=== PATIENT | female | born 1945 | race Caucasian/White ===

== ENCOUNTER 2019-06-12 11:21 | Outpatient (CLI) | payer OTHER ==
[~2019-06-12 11:21] MED LIST: CATAFLAM50 MG PO; KETO10TA2 PO
== END 2019-06-12 13:55 | disposition home or self-care (01) ==
LOC: RAD 11:21
DX: M51.87 Other intervertebral disc disorders, lumbosacral region (principal)

== ENCOUNTER 2019-08-11 12:43 | Outpatient (CLI) | payer OTHER | END 2019-08-11 13:11 | disposition home or self-care (01) | LOC: NUCLEAR 12:43 | DX: M81.0 Age-related osteoporosis without current pathological fracture (principal); Z13.820 Encounter for screening for osteoporosis ==

== ENCOUNTER 2019-08-29 09:50 | Outpatient (CLI) | payer OTHER | END 2019-08-29 10:30 | disposition home or self-care (01) | LOC: RAD 09:50 | DX: M54.5 Low back pain (principal); M54.16 Radiculopathy, lumbar region ==

== ENCOUNTER 2020-06-14 11:22 | Outpatient (CLI) | payer OTHER | END 2020-06-14 11:29 | disposition home or self-care (01) | LOC: RAD 11:22 | PROVIDERS: ATTEND Physical Medicine & Rehabilitation | DX: M19.071 Primary osteoarthritis, right ankle and foot (principal); M17.11 Unilateral primary osteoarthritis, right knee ==

== ENCOUNTER 2020-07-05 12:01 | Outpatient (CLI) | payer OTHER | END 2020-07-05 12:05 | disposition home or self-care (01) | LOC: LAB 12:01 | PROVIDERS: ATTEND Physical Medicine & Rehabilitation | DX: Z11.59 Encounter for screening for other viral diseases (principal) ==

== ENCOUNTER 2020-07-06 10:32 | Outpatient (CLI) | payer OTHER | END 2020-07-06 10:43 | disposition home or self-care (01) | LOC: SONOGRAMA 10:32 → MAMO-SONO 10:45 | PROVIDERS: ATTEND Physical Medicine & Rehabilitation | DX: M76.821 Posterior tibial tendinitis, right leg (principal) ==

== ENCOUNTER 2021-08-08 10:23 | Outpatient (CLI) | payer OTHER | END 2021-08-08 10:30 | disposition home or self-care (01) | LOC: RAD 10:23 | PROVIDERS: ATTEND Orthopaedic Surgery | DX: M17.12 Unilateral primary osteoarthritis, left knee (principal) ==

== ENCOUNTER 2021-08-11 13:42 | Outpatient (CLI) | payer OTHER | END 2021-08-11 13:50 | disposition home or self-care (01) | LOC: NUCLEAR 13:42 | PROVIDERS: ATTEND Orthopaedic Surgery | DX: M81.0 Age-related osteoporosis without current pathological fracture (principal) ==

== ENCOUNTER → 2021-08-23 07:27 | Outpatient (CLI) | payer OTHER | END | disposition home or self-care (01) | LOC: LAB 07:27 | PROVIDERS: ATTEND Orthopaedic Surgery | DX: M85.88 Other specified disorders of bone density and structure, other site (principal); E88.89 Other specified metabolic disorders; M81.8 Other osteoporosis without current pathological fracture; E83.42 Hypomagnesemia; E56.1 Deficiency of vitamin K ==

== ENCOUNTER 2021-10-26 11:18 | Outpatient (CLI) | payer OTHER | END 2021-10-26 11:22 | disposition home or self-care (01) | LOC: RAD 11:18 | PROVIDERS: ATTEND Orthopaedic Surgery | DX: I10 Essential (primary) hypertension (principal); M79.652 Pain in left thigh; M79.605 Pain in left leg; Z76.89 Persons encountering health services in other specified circumstances ==

== ENCOUNTER 2021-11-03 08:29 | Outpatient (CLI) | payer OTHER | END 2021-11-03 15:52 | disposition home or self-care (01) | LOC: SONOGRAMA 08:29 | PROVIDERS: ATTEND Pathology Anatomic Pathology & Clinical Pathology | DX: R10.84 Generalized abdominal pain (principal) ==

== ENCOUNTER 2021-11-28 08:31 | Outpatient (CLI) | payer OTHER | END 2021-11-28 08:44 | disposition home or self-care (01) | LOC: LAB 08:31 | PROVIDERS: ATTEND Orthopaedic Surgery | DX: I49.8 Other specified cardiac arrhythmias (principal); I10 Essential (primary) hypertension; D64.89 Other specified anemias; E88.89 Other specified metabolic disorders; E83.42 Hypomagnesemia; N39.0 Urinary tract infection, site not specified; D68.8 Other specified coagulation defects; B95.62 Methicillin resistant Staphylococcus aureus infection as the cause of diseases classified elsewhere; E11.9 Type 2 diabetes mellitus without complications; E03.8 Other specified hypothyroidism; U07.1 COVID-19 ==

== ENCOUNTER 2021-11-28 12:54 | Inpatient (IN) | payer OTHER ==
[~2021-11-28] VITALS: Ht 154.9 cm; Wt 62.1 kg
[2021-12-08] MEDS ORDERED: CYMBALTA30 MG PO (08:35)
[2021-12-08] MEDS ORDERED: CRESTOR20 MG PO (08:35)
[2021-12-12] MEDS ORDERED: FAMOTIDINE20 MG (08:59)
[2021-12-12] MEDS ORDERED: CELECOXIB200 MG (08:59)
[2021-12-12] MEDS ORDERED: XARELTO10 M1 (08:59)
[2021-12-12] MEDS ORDERED: GABAPENTIN100 M2 (08:59)
[2021-12-12] MEDS ORDERED: OFLOXACIN5 ML (09:00)
[2021-12-12] MEDS ORDERED: ZOLPIDEM TARTRAT5 MG (09:00)
[2021-12-12] MEDS ORDERED: ALPRAZOLAM0.5 MG (09:00)
[2021-12-12] MEDS ORDERED: METRONIDAZOLE70 GM (09:00)
[2021-12-12] MEDS ORDERED: PREDNISOLONE ACE5 ML (09:00)
== END 2021-12-14 20:01 | disposition home or self-care (01) | DRG 470 ==
LOC: SURG 12-12 06:41 → O/R 12-12 06:41 → SURH 12-12 07:15 → LDR 12-12 07:15 → SURH 12-12 08:15 → SURG 12-12 16:54
PROVIDERS: ADMIT Orthopaedic Surgery; ATTEND Orthopaedic Surgery
PROC: 0SRD0J9 Replacement of Left Knee Joint with Synthetic Substitute, Cemented, Open Approach (ICD-10-PCS; principal; 2021-12-12 08:15)
DX: M17.12 Unilateral primary osteoarthritis, left knee (principal); M85.662 Other cyst of bone, left lower leg

== ENCOUNTER → 2022-12-07 10:46 | Outpatient (CLI) | payer OTHER ==
[~2022-12-07 10:46] MED LIST changes: +ALPRAZOLAM0.5 MG; +CELECOXIB200 MG; +CRESTOR20 MG PO; +CYMBALTA30 MG PO; +FAMOTIDINE20 MG; +GABAPENTIN100 M2; +METRONIDAZOLE70 GM; +OFLOXACIN5 ML; +PREDNISOLONE ACE5 ML; +XARELTO10 M1; +ZOLPIDEM TARTRAT5 MG
== END | disposition home or self-care (01) ==
LOC: LAB 10:46
PROVIDERS: ATTEND Orthopaedic Surgery
DX: D64.9 Anemia, unspecified (principal); E88.9 Metabolic disorder, unspecified; D68.8 Other specified coagulation defects; N39.0 Urinary tract infection, site not specified; A49.02 Methicillin resistant Staphylococcus aureus infection, unspecified site; E11.9 Type 2 diabetes mellitus without complications; I49.9 Cardiac arrhythmia, unspecified; I10 Essential (primary) hypertension; Z76.89 Persons encountering health services in other specified circumstances

== ENCOUNTER 2023-05-25 11:29 | Outpatient (CLI) | payer OTHER | END 2023-05-25 11:38 | disposition home or self-care (01) | LOC: RAD 11:29 | PROVIDERS: ATTEND Physical Medicine & Rehabilitation | DX: M25.562 Pain in left knee (principal); Z96.652 Presence of left artificial knee joint ==

== ENCOUNTER 2023-07-19 12:59 | Outpatient (CLI) | payer OTHER | END 2023-07-19 13:04 | disposition home or self-care (01) | LOC: NUCLEAR 12:59 | PROVIDERS: ATTEND Specialist | DX: M81.0 Age-related osteoporosis without current pathological fracture (principal) ==

== ENCOUNTER 2023-11-01 10:12 | Outpatient (CLI) | payer OTHER | END 2023-11-01 10:26 | disposition home or self-care (01) | LOC: MRI 10:12 | PROVIDERS: ATTEND Physical Medicine & Rehabilitation | DX: M81.0 Age-related osteoporosis without current pathological fracture (principal); M50.33 Other cervical disc degeneration, cervicothoracic region; M54.59 Other low back pain; M54.16 Radiculopathy, lumbar region | CPT/HCPCS: 72148 ==

== ENCOUNTER → 2024-01-17 11:08 | Outpatient (CLI) | payer OTHER ==
[2024-01-17 12:18] LABS: CREATININE SERUM 0.61 mg/dL (0.55-1.02)
== END | disposition home or self-care (01) ==
LOC: LAB 11:08
PROVIDERS: ATTEND Radiology Diagnostic Radiology
DX: R10.30 Lower abdominal pain, unspecified (principal)

== ENCOUNTER 2024-01-21 07:44 | Outpatient (CLI) | payer OTHER | END 2024-01-21 07:59 | disposition home or self-care (01) | LOC: MAMO-SONO 07:44 | PROVIDERS: ATTEND Obstetrics & Gynecology | DX: N63.10 Unspecified lump in the right breast, unspecified quadrant (principal); N63.20 Unspecified lump in the left breast, unspecified quadrant; R10.9 Unspecified abdominal pain; Z12.31 Encounter for screening mammogram for malignant neoplasm of breast | CPT/HCPCS: 74178; 76641; 77067; Q9965 ==

== ENCOUNTER 2025-03-02 10:20 | Outpatient (CLI) | payer OTHER ==
[~2025-03-02 10:20] MED LIST changes: +CYMBALTA60 MG PO; +DULOXETINE HCL30 MG PO; +MEDROLPACK PO; +METHOCARBAMOL500 MG PO; +METHOCARBAMOL750 MG PO
== END 2025-03-02 10:28 | disposition home or self-care (01) ==
LOC: TOM 10:20
PROVIDERS: ATTEND Family Medicine
DX: R10.32 Left lower quadrant pain (principal); R10.2 Pelvic and perineal pain
CPT/HCPCS: 74178; Q9965

== ENCOUNTER 2025-05-15 08:59 | Outpatient (CLI) | payer OTHER | END 2025-05-15 09:00 | disposition home or self-care (01) | LOC: NUCLEAR 08:59 | PROVIDERS: ATTEND Orthopaedic Surgery Orthopaedic Surgery of the Spine | DX: M81.0 Age-related osteoporosis without current pathological fracture (principal) ==